=== PATIENT | male | born 1945 | race Caucasian/White ===

== ENCOUNTER → 2017-04-27 | Outpatient (CLI) | payer BC ==
[~2017-04-27] VITALS: Ht 182.9 cm; Wt 108.4 kg
[~2017-04-27] MED LIST: AMARYL1 MG PO; ATIVAN1 MG PO; CHILDREN'S ASPI81 M1 PO; INDERAL60 MG PO; LASIX20 MG PO; MIDAMOR5 MG PO; PROTONIX40 MG PO; XIFAXAN550 MG PO
[2017-04-27 11:24] LABS: POINT-OF-CARE METER ID UU14107333
== END | disposition home or self-care (01) ==
LOC: AMB 10:30
PROVIDERS: Internal Medicine
PROC: 06L38CZ Occlusion of Esophageal Vein with Extraluminal Device, Via Natural or Artificial Opening Endoscopic (ICD-10-PCS; principal; 2017-04-27)
DX: I85.00 Esophageal varices without bleeding (principal); K76.6 Portal hypertension; K70.31 Alcoholic cirrhosis of liver with ascites; E87.1 Hypo-osmolality and hyponatremia; D64.9 Anemia, unspecified; F41.9 Anxiety disorder, unspecified; K21.9 Gastro-esophageal reflux disease without esophagitis; G62.9 Polyneuropathy, unspecified; F10.11 Alcohol abuse, in remission; Z88.0 Allergy status to penicillin
CPT/HCPCS: 82948; 93005; J3010

== ENCOUNTER → 2017-06-08 | Outpatient (CLI) | payer OTHER ==
[~2017-06-08] VITALS: Ht 182.9 cm; Wt 108.4 kg
[~2017-06-08] MED LIST changes: +EPLERENONE25 MG PO
== END | disposition home or self-care (01) ==
LOC: AMB 06-07 10:30
PROVIDERS: Internal Medicine
PROC: 06L38CZ Occlusion of Esophageal Vein with Extraluminal Device, Via Natural or Artificial Opening Endoscopic (ICD-10-PCS; principal; 2017-06-08)
DX: I85.00 Esophageal varices without bleeding (principal); K76.6 Portal hypertension; K31.89 Other diseases of stomach and duodenum; K74.60 Unspecified cirrhosis of liver; F10.11 Alcohol abuse, in remission; D64.9 Anemia, unspecified; F41.9 Anxiety disorder, unspecified; G93.40 Encephalopathy, unspecified; K21.9 Gastro-esophageal reflux disease without esophagitis; G62.9 Polyneuropathy, unspecified; Z88.0 Allergy status to penicillin
CPT/HCPCS: 82948; J0330; J2250; J2405